=== PATIENT | female | born 1990 | race Hispanic/Latino ===

== ENCOUNTER 2017-08-11 19:15 | Emergency (ER) | payer OTHER ==
[2017-08-11 20:26] LABS: RAPID GROUP A STREP NEGATIVE (NEGATIVE)
[2017-08-11] MEDS ORDERED: IBUPROFEN 200 MG TAB ONE (21:29)
[2017-08-11] MEDS ORDERED: IBUPROFEN 400 MG TABLET ONE (21:29)
== END 2017-08-11 21:59 | disposition home or self-care (01) ==
LOC: EDH 19:15
DX: J11.1 Influenza due to unidentified influenza virus with other respiratory manifestations (principal); Z98.890 Other specified postprocedural states
CPT/HCPCS: 87804; 87880

== ENCOUNTER 2018-04-14 19:31 | Emergency (ER) | payer OTHER ==
[2018-04-14] MEDS ORDERED: ONDANSETRON ODT 4 MG TAB ONE (20:15)
[2018-04-14 20:22] LABS: APPEARANCE,URINE Cloudy (CLEAR); BILIRUBIN,URINE Negative (NEGATIVE); COLOR,URINE Yellow (YELLOW); GLUCOSE, URINE (UA) Negative (NEGATIVE); KETONES,URINE Trace mg/dL (NEGATIVE); LEUKOCYTE ESTERASE ,URINE Trace (NEGATIVE); NITRATE,URINE Positive (NEGATIVE); OCCULT BLOOD,URINE Trace (NEGATIVE); PROTEIN,URINE Negative (NEGATIVE)
[2018-04-14 21:10] LABS: BACTERIA,URINE Moderate /HPF (None Seen); RBC,URINE 0-1 /HPF (0-1); SQUAMOUS EPITHELIAL CELL,UR 0-2 /HPF (0-2); WBC,URINE 0-1 /HPF (0-1)
[2018-04-14 21:20] LABS: HCG,QUAL RESULT NEGATIVE (NEGATIVE)
== END 2018-04-14 21:31 | disposition home or self-care (01) ==
LOC: EDH 19:31
DX: N39.0 Urinary tract infection, site not specified (principal); F41.9 Anxiety disorder, unspecified; Z98.51 Tubal ligation status; Z98.890 Other specified postprocedural states
CPT/HCPCS: 81001; 81025; 87804

== ENCOUNTER 2018-08-03 07:58 | Observation (INO) | payer OTHER ==
[~2018-08-03] VITALS: Ht 157.5 cm; Wt 68.9 kg
[2018-08-03 08:40] LABS: BASOPHILS % (AUTO) 1.1 % (0.0-5.0); HEMATOCRIT 36.2 % (36-48); LYMPHOCYTES % (AUTO) 20.8 % (21.0-51.0); MEAN CORPUSCULAR HEMOGLOBIN 30.8 pg (27.0-33.0); MEAN CORPUSCULAR HGB CONC 33.7 g/dL (32.0-36.0); MEAN CORPUSCULAR VOLUME 91.3 fL (79-99); MONOCYTES % (AUTO) 7.9 % (3.0-13.0); NEUTROPHILS % (AUTO) 68.2 % (40.0-77.0); PLATELET COUNT (AUTO) 247 K/uL (130-400); RED BLOOD CELL COUNT(AUTO) 3.97 MIL/uL (4.00-5.50); RED CELL DISTRIBUTION WIDTH 12.7 % (11.0-15.5); WHITE BLOOD COUNT (AUTO) 5.4 K/uL (4.8-10.8)
[2018-08-03 08:41] LABS: APPEARANCE,URINE Clear (CLEAR); BILIRUBIN,URINE Negative (NEGATIVE); COLOR,URINE Yellow (YELLOW); GLUCOSE, URINE (UA) Negative (NEGATIVE); KETONES,URINE Trace mg/dL (NEGATIVE); LEUKOCYTE ESTERASE ,URINE Small (NEGATIVE); NITRATE,URINE Positive (NEGATIVE); OCCULT BLOOD,URINE Nonhemolyzed Trace (NEGATIVE); PH,URINE 5.5 (5.0-8.0); PROTEIN,URINE Negative (NEGATIVE)
[2018-08-03 08:46] LABS: CREATININE 0.6 mg/dL (0.5-1.5); POTASSIUM 3.7 mmol/L (3.5-5.1)
[2018-08-03 08:48] LABS: HCG,QUAL RESULT NEGATIVE (NEGATIVE)
[2018-08-03 08:50] LABS: ALBUMIN 3.9 g/dL (3.5-5.0); BACTERIA,URINE Moderate /HPF (None Seen); BILIRUBIN,TOTAL 0.2 mg/dL (0.2-1.0); RBC,URINE 0-1 /HPF (0-1); TOTAL PROTEIN, SERUM 7.8 g/dL (6.0-8.3)
[2018-08-03 08:51] LABS: MUCUS,URINE Moderate LPF (None Seen); SQUAMOUS EPITHELIAL CELL,UR Few /HPF (0-2)
[2018-08-03] MEDS ORDERED: ONDANSETRON ODT 4 MG TAB ONE (08:51)
[2018-08-03] MEDS ORDERED: SODIUM CHLORIDE 0.9% 100 ML IV ONE (09:47)
[2018-08-03] MEDS ORDERED: CEFTRIAXONE SODIUM 1 GM ONE (09:47)
[2018-08-03] MEDS ORDERED: KETOROLAC TROMETHAMINE 30MG/ML ONE (09:47)
[2018-08-03] MEDS ORDERED: SODIUM CHLORIDE 0.9% 1000ML 1,000 ML IV SCH (12:20)
[2018-08-03] MEDS ORDERED: MORPHINE SULFATE 2 MG/ML 1ML SYG IV PRN (12:30)
[2018-08-03] MEDS ORDERED: ONDANSETRON HCL 4 MG/2 ML VIAL IV PRN (12:30)
[2018-08-03] MEDS ORDERED: HYDRALAZINE HCL 20 MG/ML VIAL IV PRN (12:30)
[2018-08-03] MEDS ORDERED: MORPHINE SULFATE 4 MG/1ML SYG IV PRN (12:30)
[2018-08-03] MEDS ORDERED: ACETAMINOPHEN 325 MG TAB PO PRN ×2 (12:30)
[2018-08-03 13:16] LABS: HEMOGLOBIN A1C 5.1 % (4.0-6.0)
[2018-08-03 13:18] LABS: MAGNESIUM 1.9 mg/dL (1.80-2.40); PHOSPHORUS 3.4 mg/dL (2.5-4.9)
[2018-08-03 13:50] VITALS: BP 111/71
[2018-08-03] MEDS: LACTATED RINGERS 1000ML 1,000 ML IV SCH (19:50)
[2018-08-03] MEDS: ZOSYN 3.375GM+NS 50ML 50 ML IV SCH ×2 (19:51→21:00)
[2018-08-03 20:26] VITALS: BP 114/70
[2018-08-03] MEDS: FAMOTIDINE/PF 20 MG/2 ML VIAL IV SCH (22:31)
[2018-08-04] VITALS (20 sets, daily range): BP systolic 84–126; BP diastolic 61–91
[2018-08-04] MEDS: FAMOTIDINE/PF 20 MG/2 ML VIAL IV SCH (04:16)
[2018-08-04] MEDS: ZOSYN 3.375GM+NS 50ML 50 ML IV SCH ×2 (04:17→13:35)
[2018-08-04] MEDS: LACTATED RINGERS 1000ML 1,000 ML IV SCH (04:17)
[2018-08-04] MEDS ORDERED: BUPIVACAINE/PF 0.5% 30ML VIAL ONE (06:23)
[2018-08-04] MEDS ORDERED: LIDOCAINE PF 2% 5ML ABBOJECT ONE (06:49)
[2018-08-04] MEDS ORDERED: PROPOFOL 10 MG/ML 20ML VIAL IV ONE (06:49)
[2018-08-04] MEDS ORDERED: SUCCINYLCHOLINE 200MG/10ML SYR ONE (06:49)
[2018-08-04] MEDS ORDERED: ROCURONIUM 10MG/1ML SYR 10 MG/ML ML ONE (06:49)
[2018-08-04] MEDS ORDERED: FENTANYL CITRATE PF 50 MCG/1 ML 2ML VIAL ONE ×2 (06:50→08:55)
[2018-08-04] MEDS ORDERED: ONDANSETRON HCL 4 MG/2 ML VIAL ONE (08:41)
[2018-08-04] MEDS ORDERED: KETOROLAC TROMETHAMINE 30MG/ML ONE (08:41)
[2018-08-04] MEDS ORDERED: GLYCOPYRROLATE 1 MG/5 ML SYRINGE ONE (08:48)
[2018-08-04] MEDS ORDERED: NEOSTIGMINE 5MG/5ML SYR IV ONE (08:49)
[2018-08-04] MEDS ORDERED: CEFAZOLIN SODIUM 1 GM VIAL ONE (09:07)
--- NOTE | 2018-08-04 10:07 | NUR ---
post op received report for Cammie MARTINEZ. s/p disha ambriz by Yue. Pt has 4 tegaderm dressings. 3 are dry and intact. 1 RLQ is scant - red. pt verbalizes understanding regarding pain management, post op vitals started. clear liquid for lunch, advance as tolerated. continue to monitor.
== END 2018-08-04 19:00 | disposition home or self-care (01) ==
LOC: EDH 07:58 → EDHIP 12:20 → 3CH 14:21
PROVIDERS: ADMIT Internal Medicine; ATTEND Internal Medicine
DX: K80.00 Calculus of gallbladder with acute cholecystitis without obstruction (principal); K82.8 Other specified diseases of gallbladder; G24.9 Dystonia, unspecified; K66.8 Other specified disorders of peritoneum; Z79.899 Other long term (current) drug therapy
CPT/HCPCS: 36415; 47562; 80053; 81001; 81025; 82150; 83036; 83690; 83735; 84100; 85025; 88304; 96365; 96366 ×2; 96375 ×2; 99284; A4510; A4649 ×4; A4930 ×2; A6206; C1769 ×3; G0378 ×31; J0330; J0690; J0696; J1885 ×2; J2001; J2405 ×2; J2543 ×3; J2704; J2710; J3010 ×2; J3490 ×3; J7030; J7120 ×3

== ENCOUNTER 2018-12-10 10:50 | Emergency (ER) | payer OTHER ==
[2018-12-10] MEDS ORDERED: ONDANSETRON HCL 4 MG/2 ML VIAL ONE (11:28)
[2018-12-10] MEDS ORDERED: SIMETHICONE 80 MG TAB.CHEW ONE (11:28)
[2018-12-10] MEDS ORDERED: FAMOTIDINE/PF 20 MG/2 ML VIAL IV ONE (11:28)
[2018-12-10] MEDS ORDERED: SODIUM CHLORIDE 0.9% 1000ML 1,000 ML IV ONE (11:29)
[2018-12-10 11:32] LABS: BASOPHILS % (AUTO) 0.2 % (0.0-5.0); EOSINOPHILS % (AUTO) 0.1 % (0.0-8.0); LYMPHOCYTES % (AUTO) 4.1 % (21.0-51.0); MEAN CORPUSCULAR HEMOGLOBIN 32.8 pg (27.0-33.0); MEAN CORPUSCULAR HGB CONC 35.5 g/dL (32.0-36.0); MEAN CORPUSCULAR VOLUME 92.3 fL (79-99); NEUTROPHILS % (AUTO) 90.6 % (40.0-77.0); PLATELET COUNT (AUTO) 172 K/uL (130-400); RED BLOOD CELL COUNT(AUTO) 4.12 MIL/uL (4.00-5.50); WHITE BLOOD COUNT (AUTO) 7.3 K/uL (4.8-10.8)
[2018-12-10 11:42] LABS: CREATININE 0.8 mg/dL (0.5-1.5); POTASSIUM 3.3 mmol/L (3.5-5.1)
[2018-12-10 11:49] LABS: ALBUMIN 3.9 g/dL (3.5-5.0); BILIRUBIN,TOTAL 0.6 mg/dL (0.2-1.0)
[2018-12-10] MEDS ORDERED: MAGNESIUM OXIDE 400 MG TABLET PO ONE (11:56)
[2018-12-10] MEDS ORDERED: POTASSIUM CHLORIDE 20 MEQ ERTAB PO ONE (11:57)
== END 2018-12-10 12:38 | disposition home or self-care (01) ==
LOC: EDH 10:50
DX: R11.2 Nausea with vomiting, unspecified (principal); R19.7 Diarrhea, unspecified; E87.6 Hypokalemia; F41.9 Anxiety disorder, unspecified; Z90.49 Acquired absence of other specified parts of digestive tract; Z98.51 Tubal ligation status
CPT/HCPCS: 36415; 80053; 83690; 85025; 96361; 96374; 96375; 99284; J2405; J3490; J7030

== ENCOUNTER 2019-02-20 14:13 | Emergency (ER) | payer OTHER | END 2019-02-20 15:15 | disposition home or self-care (01) | LOC: EDH 14:13 | DX: F41.9 Anxiety disorder, unspecified (principal); Z90.49 Acquired absence of other specified parts of digestive tract; Z98.890 Other specified postprocedural states ==

== ENCOUNTER 2019-09-16 18:05 | Emergency (ER) | payer SELFPAY | END 2019-09-16 18:35 | disposition home or self-care (01) | LOC: EDH 18:05 | DX: R05 Cough (principal) | CPT/HCPCS: 99281 ==

== ENCOUNTER → 2020-11-13 | Emergency (ER) | payer OTHER ==
[~2020-11-13] MED LIST: IOHEXOL 350 MG/ML 100ML INFUS..BTL IV ONE; KETOROLAC TROMETHAMINE 30MG/ML ONE; MORPHINE SULFATE 4 MG/1ML SYG ONE; ONDANSETRON HCL 4 MG/2 ML VIAL ONE; PROCHLORPERAZINE EDISYLATE 10 MG/2 ML VIAL ONE
[2020-11-13 10:38] LABS: BASOPHILS % (AUTO) 0.3 % (0.0-5.0); EOSINOPHILS % (AUTO) 0.9 % (0.0-8.0); HEMATOCRIT 37.6 % (36-48); LYMPHOCYTES % (AUTO) 19.3 % (21.0-51.0); MEAN CORPUSCULAR HEMOGLOBIN 30.7 pg (27.0-33.0); MEAN CORPUSCULAR VOLUME 93.1 fL (79-99); MONOCYTES % (AUTO) 7.1 % (3.0-13.0); NEUTROPHILS % (AUTO) 71.7 % (40.0-77.0); PLATELET COUNT (AUTO) 242 K/uL (130-400); RED BLOOD CELL COUNT(AUTO) 4.04 MIL/uL (4.00-5.50); RED CELL DISTRIBUTION WIDTH 12.5 % (11.0-15.5); WHITE BLOOD COUNT (AUTO) 5.8 K/uL (4.8-10.8)
[2020-11-13 10:43] LABS: APPEARANCE,URINE Clear (CLEAR); BILIRUBIN,URINE Negative (NEGATIVE); COLOR,URINE Yellow (YELLOW); GLUCOSE, URINE (UA) Negative (NEGATIVE); KETONES,URINE Negative (NEGATIVE); LEUKOCYTE ESTERASE ,URINE Trace (NEGATIVE); NITRATE,URINE Positive (NEGATIVE); OCCULT BLOOD,URINE Moderate (NEGATIVE); PH,URINE 5.5 (5.0-8.0); PROTEIN,URINE Negative (NEGATIVE); UROBILINOGEN,URINE 0.2 mg/dL (0.2-1.0)
[2020-11-13 10:44] LABS: CREATININE 0.7 mg/dL (0.5-1.5); POTASSIUM 3.6 mmol/L (3.5-5.1)
[2020-11-13 10:46] LABS: INR 1.01 (0.85-1.15)
[2020-11-13 10:47] LABS: PARTIAL THROMBOPLASTIN TIME 25.4 SEC (26.3-35.5)
[2020-11-13 10:48] LABS: ALBUMIN 3.8 g/dL (3.5-5.0); BILIRUBIN,TOTAL 0.3 mg/dL (0.2-1.0); TOTAL PROTEIN, SERUM 7.8 g/dL (6.0-8.3)
[2020-11-13 10:50] LABS: AMPHET/METH SCREEN,URINE NEGATIVE (NEGATIVE); BARBITURATE SCREEN, URINE NEGATIVE (NEGATIVE); BENZODIAZEPINES SCREEN,URINE NEGATIVE (NEGATIVE); CANNABINOID SCREEN,URINE NEGATIVE (NEGATIVE); COCAINE SCREEN,URINE NEGATIVE (NEGATIVE); OPIATE SCREEN,URINE NEGATIVE (NEGATIVE); PHENCYCLIDINE SCREEN,URINE NEGATIVE (NEGATIVE)
[2020-11-13 11:31] LABS: BACTERIA,URINE Many /HPF (None Seen); RBC,URINE 0-1 /HPF (0-1); SQUAMOUS EPITHELIAL CELL,UR Few /HPF (0-2); WBC,URINE 0-1 /HPF (0-1)
== END ==
LOC: EDH 10:12
DX: R51.9 Headache, unspecified (principal); F10.10 Alcohol abuse, uncomplicated; M54.2 Cervicalgia; M54.9 Dorsalgia, unspecified; R11.2 Nausea with vomiting, unspecified; F41.9 Anxiety disorder, unspecified; Z98.890 Other specified postprocedural states; V49.9XXA Car occupant (driver) (passenger) injured in unspecified traffic accident, initial encounter; Y93.89 Activity, other specified; Y92.89 Other specified places as the place of occurrence of the external cause; Y99.8 Other external cause status
CPT/HCPCS: 36415; 70450; 71260; 72125; 74177; 80053; 80305; 81001; 81025; 85025; 85610; 85730; 87077; 87088; 87186; 93005; 96374; 96375; 99285; J0780; J1885; J2270; J2405; Q9967

== ENCOUNTER 2022-10-05 12:46 | Emergency (ER) | payer OTHER ==
[~2022-10-05] VITALS: Ht 157.5 cm; Wt 70.3 kg
[2022-10-05] MEDS ORDERED: MORPHINE 4 MG SYG IVP ONE (14:00)
[2022-10-05] MEDS ORDERED: ONDANSETRON 4MG INJ IVP ONE (14:00)
[2022-10-05] MEDS ORDERED: 0.9%NACL 1000ML 1,000 ML IV ONE (14:00)
[2022-10-05 14:03] LABS: BASOPHILS % (AUTO) 0.7 % (0.0-5.0); EOSINOPHILS % (AUTO) 0.7 % (0.0-8.0); HEMATOCRIT 36.5 % (36-48); MEAN CORPUSCULAR HEMOGLOBIN 30.3 pg (27.0-33.0); MEAN CORPUSCULAR HGB CONC 32.9 g/dL (32.0-36.0); MEAN CORPUSCULAR VOLUME 92.2 fL (79-99); MONOCYTES % (AUTO) 7.7 % (3.0-13.0); NEUTROPHILS % (AUTO) 69.5 % (40.0-77.0); PLATELET COUNT (AUTO) 244 K/uL (130-400); RED BLOOD CELL COUNT(AUTO) 3.96 MIL/uL (4.00-5.50); RED CELL DISTRIBUTION WIDTH 12.6 % (11.0-15.5); WHITE BLOOD COUNT (AUTO) 5.4 K/uL (4.8-10.8)
[2022-10-05 14:12] LABS: APPEARANCE,URINE CLEAR (CLEAR); BILIRUBIN,URINE NEGATIVE (NEGATIVE); COLOR,URINE LIGHT-YELLOW (YELLOW); GLUCOSE, URINE (UA) NEGATIVE (NEGATIVE); KETONES,URINE NEGATIVE (NEGATIVE); LEUKOCYTE ESTERASE ,URINE NEGATIVE Leu/uL (NEGATIVE); NITRATE,URINE NEGATIVE (NEGATIVE); OCCULT BLOOD,URINE NEGATIVE (NEGATIVE); PH,URINE 6.5 (5.0-8.0); PROTEIN,URINE NEGATIVE (NEGATIVE); UROBILINOGEN,URINE 0.2 mg/dL (0.2-1.0)
[2022-10-05 14:13] LABS: CREATININE 0.7 mg/dL (0.5-1.5); POTASSIUM 3.6 mmol/L (3.5-5.1)
[2022-10-05 14:19] LABS: ALBUMIN 3.6 g/dL (3.5-5.0); TOTAL PROTEIN, SERUM 7.3 g/dL (6.0-8.3)
[2022-10-05] MEDS ORDERED: ONDA4TAB10 PO (14:54)
[2022-10-05] MEDS ORDERED: POLY17PO4 PO (14:54)
[2022-10-05 15:19] VITALS: BP 122/65
== END 2022-10-05 15:22 | disposition home or self-care (01) ==
LOC: EDH 12:46
DX: K59.00 Constipation, unspecified (principal); R10.9 Unspecified abdominal pain; R11.2 Nausea with vomiting, unspecified; Z90.49 Acquired absence of other specified parts of digestive tract
CPT/HCPCS: 99285; 74176; 96360; 96374; 96375; 80053; 83690; 85025; 83605; 81003; 81025; 36415; J7030; J2405; J2270

== ENCOUNTER 2022-12-14 12:41 | Emergency (ER) | payer OTHER ==
[~2022-12-14] VITALS: Ht 157.5 cm; Wt 72.6 kg
[~2022-12-14 12:41] MED LIST changes: -IOHEXOL 350 MG/ML 100ML INFUS..BTL IV ONE; -KETOROLAC TROMETHAMINE 30MG/ML ONE; -MORPHINE SULFATE 4 MG/1ML SYG ONE; +ONDA4TAB10 PO; -ONDANSETRON HCL 4 MG/2 ML VIAL ONE; +POLY17PO4 PO; -PROCHLORPERAZINE EDISYLATE 10 MG/2 ML VIAL ONE
[2022-12-14] MEDS ORDERED: IPRATROPIUM/ALBUTEROL SULFATE 3 ML SOLUTION IH ONE (14:00)
[2022-12-14] MEDS ORDERED: IBUPROFEN 600 MG TABLET ONE (16:49)
[2022-12-14] MEDS ORDERED: ACETAMINOPHEN 500 MG TABLET ONE (16:49)
[2022-12-14] MEDS ORDERED: OSEL75 PO (17:56)
[2022-12-14] MEDS ORDERED: BENZ200C53 PO (17:56)
[2022-12-14 18:03] VITALS: BP 132/78
== END 2022-12-14 18:13 | disposition home or self-care (01) ==
LOC: EDH 12:41
DX: J11.1 Influenza due to unidentified influenza virus with other respiratory manifestations (principal); Z20.822 Contact with and (suspected) exposure to COVID-19; Z90.49 Acquired absence of other specified parts of digestive tract; Z79.899 Other long term (current) drug therapy; Z98.890 Other specified postprocedural states
CPT/HCPCS: 99284; 71046; 87635; 87880; 87804 ×2; 94640; C9803

== ENCOUNTER 2023-04-03 19:45 | Emergency (ER) | payer OTHER ==
[~2023-04-03] VITALS: Ht 157.5 cm; Wt 73.5 kg
[~2023-04-03 19:45] MED LIST changes: +BENZ200C53 PO; +OSEL75 PO
[2023-04-03 20:59] VITALS: BP 133/80; PULSE 72; RESP 18
== END 2023-04-04 01:30 | disposition left against medical advice (07) ==
LOC: EDH 19:45
DX: M79.605 Pain in left leg (principal); Z53.21 Procedure and treatment not carried out due to patient leaving prior to being seen by health care provider
CPT/HCPCS: 99281